=== PATIENT | female | born 1985 | race Hispanic/Latino ===

== ENCOUNTER → 2018-07-19 | Outpatient (CLI) | payer OTHER ==
--- NOTE | 2018-07-20 08:56 | Diagnostic Imaging Report ---
#[id number] - USBRELIMRT ULTRASOUND OF THE RIGHT BREAST : 07/19/2018 Comparison is made to exam dated: 07/19/2018 mammogram - [facility]. Color flow and real-time ultrasound were performed on the right breast in the area of interest where there is a palpable mass marker with scanning from 3 to 6 o'clock. No cystic or solid mass is identified. IMPRESSION: NEGATIVE There is no sonographic evidence of malignancy. A 3 year screening mammogram is recommended. Nikolai Neri Jr., D.O. cw/:07/19/2018 13:54:45 Roll Tension Tester: NADIA HARO RDMS, [facility] letter sent: Normal Exam Ultrasound BI-RADS: 1 Negative
--- NOTE | 2018-07-20 08:56 | Diagnostic Imaging Report ---
#[id number] - MGDXBIL #BILATERAL DIGITAL DIAGNOSTIC MAMMOGRAM WITH CAD: 07/19/2018 No prior exams were available for comparison. Current study contains 6 films. The tissue of both breasts is extremely dense, which lowers the sensitivity of mammography. Current study was also evaluated with a Computer Aided Detection (CAD) system. There are benign vascular calcifications in both breasts. There also are benign calcifications in the right breast. A palpable mass marker is present on the right side without corresponding mammographic abnormality. A focused breast ultrasound will follow this examination. No significant masses, calcifications, or other findings are seen in either breast. IMPRESSION: BENIGN There is no mammographic evidence of malignancy. A 3 year screening mammogram is recommended. The patient will be notified by letter of the results. Nikolai Neri Jr., D.O. cw/:07/19/2018 13:50:44 Multifold Operator: Carie HAHN)(Lakhwinder), [facility] letter sent: Normal Exam Mammogram BI-RADS: 2 Benign
== END ==
LOC: MAMMO 10:23
PROVIDERS: ATTEND Obstetrics & Gynecology Obstetrics
DX: R92.0 Mammographic microcalcification found on diagnostic imaging of breast (principal)
CPT/HCPCS: 77066